=== PATIENT | female | born 1965 | race Caucasian/White ===

== ENCOUNTER → 2018-12-30 12:13 | Outpatient (CLI) | payer BC, SELFPAY | PROVIDERS: PCP Family Medicine; Visit Provider Family Medicine | DX: R40.0 Somnolence; G47.33 Obstructive sleep apnea (adult) (pediatric) | CPT/HCPCS: 95806 ==

== ENCOUNTER → 2019-03-18 10:15 | Outpatient (CLI) | payer BC, SELFPAY ==
[2019-03-18 10:41] LABS: Basophils # 0.1 K/mm3 (0-0.2); Basophils % 0.8 % (0.1-2.0); Eosinophils # 0.4 K/mm3 (0.0-0.4); Eosinophils % 4.1 % (0.1-12.0); Hematocrit 39.5 % (37.0-47.0); Hemoglobin 12.6 g/dL (12.2-16.2); Lymphocytes # 2.4 K/mm3 (0.7-4.5); Lymphocytes % 24.1 % (10-50); Mean Corpuscular HGB Conc 31.9 g/dL (31.8-35.4); Mean Corpuscular Volume 94.1 fl (81-99); Mean Platelet Volume 7.8 fl (7.4-10.4); Monocytes # 0.4 K/mm3 (0.1-1.0); Monocytes % 3.9 % (1.7-9.3); Neutrophils # 6.7 K/mm3 (1.8-7.8); Neutrophils % 67.1 % (37.0-80.0); Platelet Count 290 K/mm3 (142-424); Red Cell Distribution Width 13.2 % (11.5-17.5); White Blood Count 9.9 K/mm3 (4.8-10.8)
[2019-03-18 13:40] LABS: Alanine Aminotransferase 23 U/L (12-78); Albumin Level 3.3 gm/dL (3.4-5.0); Albumin/Globulin Ratio 1.1 (1.1-1.8); Alkaline Phosphatase 63 U/L (46-116); Anion Gap 15.5 mEq/L (5-15); Aspartate Amino Transferase 13 U/L (15-37); Bilirubin,Total 0.2 mg/dL (0.2-1.0); Blood Urea Nitrogen 12 mg/dL (7-18); Calcium 9.2 mg/dL (8.5-10.1); Carbon Dioxide 28 mmol/L (21.0-32.0); Chloride 100 mmol/L (98-107); Creatinine,Serum 0.85 mg/dL (0.55-1.02); Estimated Glomerular Filt Rate 69 ml/min (>60); Ferritin 251 ng/mL (8-388); GFR (African American) 84 ML/MIN (>60); Glucose 209 mg/dL (74-106); Potassium 3.5 mmoL/L (3.5-5.1); Sodium 140 mmol/L (136-145); Thyroid Stimulating Hormone 2.68 uIU/ml (0.358-3.740); Total Protein,Serum 6.3 gm/dL (6.4-8.2)
[2019-03-20 20:43] LABS: Vitamin B12 386 pg/mL (232-1245); Vitamin D 25 Hydroxy 67.9 ng/mL (30.0-100.0)
[2019-03-20 20:44] LABS: Folate 8.4 ng/mL (>3.0)
== END ==
PROVIDERS: PCP Family Medicine; Visit Provider Nurse Practitioner Family
DX: G47.33 Obstructive sleep apnea (adult) (pediatric) (principal); G25.81 Restless legs syndrome; G47.10 Hypersomnia, unspecified
CPT/HCPCS: 36415; 80053; 82607; 82652; 82728; 82746; 84443; 85025; 94762

== ENCOUNTER → 2020-05-02 12:31 | Outpatient (CLI) | payer BC, SELFPAY ==
--- NOTE | 2020-05-02 12:37 | XR_ITS ---
PROCEDURE: XR CHEST 2V CLINICAL HISTORY: COUGH COMPARISON: No exams were available for comparison FINDINGS: The cardiomediastinal silhouette and pulmonary vascularity are within normal limits. There are increased markings in the right lung base medially suspicious for an area of infiltrate. There is some mild prominence of the interstitial markings. No acute bony abnormalities. IMPRESSION: Right lower lobe infiltrate Dictated by: Mac Qiu MD 05/02/2020 13:19 Electronically signed by Mac Qiu MD in [place] 05/02/2020 13:19
== END ==
PROVIDERS: PCP Family Medicine; Visit Provider Specialist
DX: R05 Cough (principal); R06.02 Shortness of breath; Z72.0 Tobacco use
CPT/HCPCS: 71046